=== PATIENT | male | born 1955 | race Caucasian/White ===

== ENCOUNTER → 2022-11-24 13:40 | Outpatient (BNVA) | payer MEDICARE, SELFPAY | PROVIDERS: PCP Nurse Practitioner Family; Referring Provider Nurse Practitioner Family; Visit Provider Nurse Practitioner | DX: I69.220 Aphasia following other nontraumatic intracranial hemorrhage (principal); I69.222 Dysarthria following other nontraumatic intracranial hemorrhage; I10 Essential (primary) hypertension; I25.10 Atherosclerotic heart disease of native coronary artery without angina pectoris; E78.5 Hyperlipidemia, unspecified | CPT/HCPCS: 99203 ==

== ENCOUNTER → 2022-12-21 14:13 | Outpatient (BNVA) | payer MEDICARE, SELFPAY | PROVIDERS: PCP Nurse Practitioner Family; Visit Provider Internal Medicine | DX: Z86.73 Personal history of transient ischemic attack (TIA), and cerebral infarction without residual deficits (principal); I25.10 Atherosclerotic heart disease of native coronary artery without angina pectoris; I10 Essential (primary) hypertension; I49.3 Ventricular premature depolarization; Z87.891 Personal history of nicotine dependence; R42 Dizziness and giddiness | CPT/HCPCS: 93225; 99204 ==